=== PATIENT | female | born 1960 | race African-American/Black ===

== ENCOUNTER 2020-09-25 16:57 | Inpatient (IN) | payer MEDICAID ==
[~2020-09-25] VITALS: Ht 162.6 cm; Wt 55.3 kg
[~2020-09-25 16:57] MED LIST: AMLO10TA80 PO; HYDR100T26 MT; IBUP-2029 PO; INSLIS SUBCUT; LOSA50TA3 PO
[2020-09-25 17:47] LABS: BASOPHILS % 0.4 % (0.0-2.0); EOSINOPHILS % 0.2 % (0.0-5.0); LYMPHOCYTES % 9.4 % (20.0-50.0); MEAN CORPUSCULAR HEMOGLOBIN 28.7 pg (28.0-32.0); MEAN CORPUSCULAR VOLUME 90.6 fL (81.0-99.0); MEAN PLATELET VOLUME 8.5 fl (7.4-10.4); MONOCYTES % 5.5 % (2.0-8.0); NEUTROPHILS % 84.5 % (40.0-76.0); PLATELET 133 x1000/uL (130-400); RED BLOOD CELL COUNT 7.26 mill/uL (4.2-5.4); RED CELL DISTRIBUTION WIDTH 17.7 % (11.6-14.6)
[2020-09-25 17:51] LABS: HEMATOCRIT. 65.8 % (36.0-48.0); HEMOGLOBIN. 20.8 g/dL (12.0-16.0)
[2020-09-25 17:53] LABS: CHLORIDE 123 mEq/L (98-107)
[2020-09-25 18:02] LABS: CREATINE KINASE 563 IU/L (26-192)
[2020-09-25] MEDS ORDERED: DEXTROSE 50% WATER 50ML SYRINGE IV ONE (18:45)
[2020-09-25] MEDS ORDERED: CALCIUM GLUCONATE 1,000 MG in DEXT 5% WATER 100 ML IV ONE (18:45)
[2020-09-25] MEDS ORDERED: INSULIN REGULAR (HUMULIN R) 300UNITS/3ML VIAL IV ONE (18:45)
[2020-09-25] MEDS ORDERED: SODIUM BICARBONATE 8.4% 1 MEQ/ML 50ML SYR IV ONE (18:45)
[2020-09-25] MEDS ORDERED: PIPERACILLIN/TAZ 3.375G PREMIX 50 ML IV ONE (18:45)
[2020-09-25] MEDS ORDERED: VANCOMYCIN 1 G PREMIX 200 ML IV ONE (18:45)
[2020-09-25 19:27] LABS: INR 1.1; PROTHROMBIN TIME 11.6 sec (9.6-11.0)
[2020-09-25] MEDS ORDERED: LORAZEPAM 2MG/ML CPJ IV ONE (20:00)
[2020-09-25 21:45] LABS: CLARITY URINE CLOUDY (CLEAR); COLOR URINE YELLOW (YELLOW); KETONES URINE TRACE (NEGATIVE); LEUKOCYTE ESTERASE URINE 3+ (NEGATIVE); NITRITE URINE NEGATIVE (NEGATIVE); OCCULT BLOOD URINE 2+ (NEGATIVE); PROTEIN URINE 3+ (NEGATIVE); SPECIFIC GRAVITY URINE 1.019 (1.005-1.030)
[2020-09-25] MEDS ORDERED: NICARDIPINE 40MG/200ML PREMIX 200 ML IV PRN (22:00)
[2020-09-26] VITALS (91 sets, daily range): BP systolic 102–161; BP diastolic 41–96
[2020-09-26] MEDS ORDERED: NICARDIPINE 100 MG in SODIUM CHLORIDE 0.9% 60 ML IV PRN (02:00)
[2020-09-26 05:37] LABS: BASOPHILS % 0.3 % (0.0-2.0); EOSINOPHILS % 0.2 % (0.0-5.0); HEMOGLOBIN. 20.5 g/dL (12.0-16.0); LYMPHOCYTES % 9.4 % (20.0-50.0); MEAN CORPUSCULAR HEMOGLOBIN 29.6 pg (28.0-32.0); MEAN CORPUSCULAR VOLUME 90.8 fL (81.0-99.0); MEAN PLATELET VOLUME 7.8 fl (7.4-10.4); MONOCYTES % 4.3 % (2.0-8.0); NEUTROPHILS % 85.8 % (40.0-76.0); PLATELET 119 x1000/uL (130-400); RED BLOOD CELL COUNT 6.92 mill/uL (4.2-5.4); RED CELL DISTRIBUTION WIDTH 17.6 % (11.6-14.6)
[2020-09-26 06:44] LABS: HEMATOCRIT. 62.9 % (36.0-48.0)
[2020-09-26] MEDS ORDERED: SODIUM POLYSTYRENE SULFONATE 15 G/60 ML BOT PR NR (08:00)
[2020-09-26] MEDS ORDERED: SODIUM BICARBONATE 8.4% 1 MEQ/ML 50ML SYR IV ONE (08:15)
[2020-09-26] MEDS ORDERED: CALCIUM GLUCONATE 1GM PREMIX 50 ML IV SCH (08:15)
[2020-09-26] MEDS ORDERED: DEXTROSE 50% WATER 50ML SYRINGE IV PRN (08:15)
[2020-09-26] MEDS ORDERED: INSULIN REGULAR (HUMULIN R) 300UNITS/3ML VIAL IV ONE (08:15)
[2020-09-26] MEDS ORDERED: DEXTROSE 50% WATER 50ML SYRINGE IV NR (09:01)
[2020-09-26] MEDS: LEVETIRACETAM 500MG PREMIX 100 ML IV SCH ×2 (09:24→21:29)
[2020-09-26] MEDS: SODIUM CHLORIDE 0.45% 1,000 ML IV SCH ×2 (09:25→16:36)
[2020-09-26] MEDS ORDERED: CEFEPIME 1,000 MG in DEXTROSE 5% WATER 50 ML IV SCH (11:00)
[2020-09-26] MEDS: BLOOD SUGAR DIAGNOSTIC STRIP TEST SCH ×3 (12:30→21:30)
[2020-09-26 12:31] LABS: BG BASE EXCESS -4.4 mmol/L (-2.0-2.0); BG CARBOXYHEMOGLOBIN 0.3 % (0.5-1.5); BG DEOXYHEMOGLOBIN 1.8 % (0.0-5.0); BG HCO3 ACT 18.7 mmol/L (22.0-26.0); BG METHEMOGLOBIN 0.5 % (0.0-1.5); BG OXYGEN SATURATION 98.2 % (92.0-98.5); BG OXYHEMOGLOBIN 97.4 % (94.0-97.0); BG PCO2 30.8 mmHg (35.0-45.0); BG PO2 118.6 mmHg (75.0-100.0); BG SAMPLE SITE LEFT BRACHIAL; BG TOTAL HEMOGLOBIN 20.9 g/dL (12.0-18.0)
[2020-09-26] MEDS: INSULIN LISPRO 100 UNITS/ML SUBCUT SCH ×3 (13:37→21:30)
[2020-09-26] MEDS: CEFEPIME 1,000 MG in DEXTROSE 5% WATER 50 ML IV SCH (21:29)
[2020-09-26] MEDS: NYSTATIN POWDER 15GM TOP SCH (21:36)
[2020-09-27] VITALS (44 sets, daily range): BP systolic 108–164; BP diastolic 63–106
[2020-09-27] MEDS: SODIUM CHLORIDE 0.45% 1,000 ML IV SCH ×2 (03:09→09:04)
[2020-09-27] MEDS: MORPHINE SULFATE 2 MG/ML CPJ (NOT FOR IM USE) IV PRN (04:07)
[2020-09-27] MEDS: BLOOD SUGAR DIAGNOSTIC STRIP TEST SCH ×4 (06:37→21:04)
[2020-09-27 07:15] LABS: BASOPHILS % 0.2 % (0.0-2.0); EOSINOPHILS % 0.3 % (0.0-5.0); HEMATOCRIT. 55.1 % (36.0-48.0); HEMOGLOBIN. 17.8 g/dL (12.0-16.0); LYMPHOCYTES % 8.9 % (20.0-50.0); MEAN CORPUSCULAR HEMOGLOBIN 29.1 pg (28.0-32.0); MEAN CORPUSCULAR VOLUME 90.3 fL (81.0-99.0); MEAN PLATELET VOLUME 7.6 fl (7.4-10.4); NEUTROPHILS % 85.6 % (40.0-76.0); PLATELET 89 x1000/uL (130-400); RED CELL DISTRIBUTION WIDTH 17.6 % (11.6-14.6)
[2020-09-27 07:26] LABS: PHOSPHORUS 4.6 mg/dL (2.5-4.9)
[2020-09-27] MEDS: INSULIN LISPRO 100 UNITS/ML SUBCUT SCH ×4 (08:00→21:19)
[2020-09-27] MEDS: NYSTATIN POWDER 15GM TOP SCH (09:43)
[2020-09-27] MEDS: LEVETIRACETAM 500MG PREMIX 100 ML IV SCH ×2 (09:43→21:15)
[2020-09-27] MEDS: CEFEPIME 1,000 MG in DEXTROSE 5% WATER 50 ML IV SCH (09:43)
[2020-09-27] MEDS ORDERED: DEXT 5%/0.2% NACL 1,000 ML IV SCH (14:15)
[2020-09-27] MEDS: DEXT 5%/0.2% NACL 1,000 ML IV SCH (18:00)
[2020-09-27 23:32] LABS: T4 FREE 1.21 ng/dL (0.76-1.46)
[2020-09-27 23:50] LABS: CANNABINOID URINE SCREEN PRESUMTIVE POSITIVE (NEGATIVE); PHENCYCLIDINE URINE SCREEN NEGATIVE (NEGATIVE)
[2020-09-27 23:51] LABS: *AMPHETAMINES SCREEN URINE NEGATIVE (NEGATIVE); *BARBITURATES SCREEN URINE NEGATIVE (NEGATIVE); *BENZODIAZEPINES SCREEN URINE NEGATIVE (NEGATIVE); *COCAINE SCREEN URINE NEGATIVE (NEGATIVE); METHADONE URINE SCREEN NEGATIVE (NEGATIVE)
[2020-09-27 23:52] LABS: OPIATES URINE SCREEN PRESUMTIVE POSITIVE (NEGATIVE)
[2020-09-27 23:58] LABS: VITAMIN B12 SERUM > 2000.0 pg/mL (211-911)
[2020-09-28] VITALS (13 sets, daily range): BP systolic 118–142; BP diastolic 68–89
[2020-09-28] MEDS: DEXT 5%/0.2% NACL 1,000 ML IV SCH (02:00)
[2020-09-28] MEDS: NYSTATIN POWDER 15GM TOP SCH ×3 (02:53→20:49)
[2020-09-28] MEDS: BLOOD SUGAR DIAGNOSTIC STRIP TEST SCH ×4 (06:31→20:48)
[2020-09-28 06:49] LABS: BASOPHILS % 0.1 % (0.0-2.0); EOSINOPHILS % 0.6 % (0.0-5.0); HEMATOCRIT. 52.3 % (36.0-48.0); HEMOGLOBIN. 17.3 g/dL (12.0-16.0); LYMPHOCYTES % 10.4 % (20.0-50.0); MEAN CORPUSCULAR HEMOGLOBIN 29.9 pg (28.0-32.0); MEAN CORPUSCULAR VOLUME 90.7 fL (81.0-99.0); MONOCYTES % 2.9 % (2.0-8.0); PLATELET 82 x1000/uL (130-400); RED BLOOD CELL COUNT 5.76 mill/uL (4.2-5.4); RED CELL DISTRIBUTION WIDTH 17.3 % (11.6-14.6)
[2020-09-28 07:06] LABS: PHOSPHORUS 2.7 mg/dL (2.5-4.9)
[2020-09-28] MEDS: LEVETIRACETAM 500MG PREMIX 100 ML IV SCH ×2 (08:10→20:48)
[2020-09-28] MEDS: INSULIN LISPRO 100 UNITS/ML SUBCUT SCH ×4 (08:11→20:58)
[2020-09-28] MEDS ORDERED: CEFEPIME 1,000 MG in DEXTROSE 5% WATER 50 ML IV SCH (09:00)
[2020-09-28] MEDS ORDERED: CLOPIDOGREL 75MG TABLET PO SCH (09:00)
[2020-09-28 09:10] LABS: IMMUNOGLOBULIN A 374 mg/dL (87-352); IMMUNOGLOBULIN G 1120 mg/dL (586-1602); IMMUNOGLOBULIN M 82 mg/dL (26-217)
[2020-09-28] MEDS: MORPHINE SULFATE 2 MG/ML CPJ (NOT FOR IM USE) IV PRN ×2 (09:40→13:30)
[2020-09-28] MEDS ORDERED: MAGNESIUM 2 G PREMIX 50 ML IV NR (10:00)
[2020-09-28] MEDS: DEXT 5%/0.45% NACL 1000ML 1,000 ML IV SCH ×2 (11:20→20:48)
[2020-09-29] VITALS (11 sets, daily range): BP systolic 112–142; BP diastolic 38–80
[2020-09-29] MEDS ORDERED: CEFTRIAXONE 1,000 MG in DEXTROSE 5% WATER 50 ML IV SCH ×2 (01:00→21:00)
[2020-09-29] MEDS: DEXT 5%/0.45% NACL 1000ML 1,000 ML IV SCH ×2 (06:14→15:15)
[2020-09-29] MEDS: BLOOD SUGAR DIAGNOSTIC STRIP TEST SCH ×4 (06:20→20:30)
[2020-09-29 08:08] LABS: BASOPHILS % 0.3 % (0.0-2.0); EOSINOPHILS % 0.4 % (0.0-5.0); HEMATOCRIT. 51.3 % (36.0-48.0); HEMOGLOBIN. 16.8 g/dL (12.0-16.0); LYMPHOCYTES % 11.6 % (20.0-50.0); MEAN CORPUSCULAR HEMOGLOBIN 29.3 pg (28.0-32.0); MEAN CORPUSCULAR VOLUME 89.8 fL (81.0-99.0); MEAN PLATELET VOLUME 8.9 fl (7.4-10.4); MONOCYTES % 3.4 % (2.0-8.0); NEUTROPHILS % 84.3 % (40.0-76.0); PLATELET 100 x1000/uL (130-400); RED BLOOD CELL COUNT 5.71 mill/uL (4.2-5.4); RED CELL DISTRIBUTION WIDTH 17.4 % (11.6-14.6)
[2020-09-29] MEDS: LEVETIRACETAM 500MG PREMIX 100 ML IV SCH ×2 (08:54→20:22)
[2020-09-29] MEDS: NYSTATIN POWDER 15GM TOP SCH ×2 (08:55→20:23)
[2020-09-29] MEDS: INSULIN LISPRO 100 UNITS/ML SUBCUT SCH ×4 (08:55→20:35)
[2020-09-29 09:21] LABS: PHOSPHORUS 2.2 mg/dL (2.5-4.9)
[2020-09-29] MEDS: AMPICILLIN SOD/SULBACTAM NA 3 G in SODIUM CHLORIDE 0.9% 100 ML IV SCH ×2 (15:03→21:43)
[2020-09-29] MEDS ORDERED: SODIUM PHOS,M-BASIC-D-BASIC 15 MM in DEXT 5% WATER 245 ML IV SCH (17:00)
[2020-09-30] VITALS (13 sets, daily range): BP systolic 114–160; BP diastolic 64–88
[2020-09-30] MEDS: DEXT 5%/0.45% NACL 1000ML 1,000 ML IV SCH ×2 (01:15→09:56)
[2020-09-30] MEDS: AMPICILLIN SOD/SULBACTAM NA 3 G in SODIUM CHLORIDE 0.9% 100 ML IV SCH ×4 (03:00→21:40)
[2020-09-30] MEDS: BLOOD SUGAR DIAGNOSTIC STRIP TEST SCH ×4 (06:50→20:35)
[2020-09-30 07:31] LABS: BASOPHILS % 0.1 % (0.0-2.0); EOSINOPHILS % 0.4 % (0.0-5.0); HEMATOCRIT. 49.8 % (36.0-48.0); HEMOGLOBIN. 16.4 g/dL (12.0-16.0); LYMPHOCYTES % 12.3 % (20.0-50.0); MEAN CORPUSCULAR HEMOGLOBIN 29.8 pg (28.0-32.0); MEAN CORPUSCULAR VOLUME 90.4 fL (81.0-99.0); MEAN PLATELET VOLUME 8.9 fl (7.4-10.4); MONOCYTES % 4.1 % (2.0-8.0); NEUTROPHILS % 83.1 % (40.0-76.0); PLATELET 111 x1000/uL (130-400); RED BLOOD CELL COUNT 5.51 mill/uL (4.2-5.4); RED CELL DISTRIBUTION WIDTH 17.1 % (11.6-14.6)
[2020-09-30 07:38] LABS: PHOSPHORUS 2.6 mg/dL (2.5-4.9)
[2020-09-30] MEDS: INSULIN LISPRO 100 UNITS/ML SUBCUT SCH ×4 (08:02→20:39)
[2020-09-30] MEDS: NYSTATIN POWDER 15GM TOP SCH ×2 (09:55→20:24)
[2020-09-30] MEDS: LEVETIRACETAM 500MG PREMIX 100 ML IV SCH ×2 (09:55→20:22)
[2020-09-30] MEDS ORDERED: GADOTERATE MEGLUMINE 5 MMOL/10 ML VIAL IV ONE (12:51)
[2020-09-30] MEDS: MORPHINE SULFATE 2 MG/ML CPJ (NOT FOR IM USE) IV PRN ×2 (15:43→20:48)
[2020-09-30] MEDS: INSULIN GLARGINE UD 100 UNITS/ML SYR SUBCUT SCH (22:49)
[2020-10-01] VITALS (11 sets, daily range): BP systolic 123–161; BP diastolic 60–95
[2020-10-01] MEDS: AMPICILLIN SOD/SULBACTAM NA 3 G in SODIUM CHLORIDE 0.9% 100 ML IV SCH ×4 (03:26→21:39)
[2020-10-01] MEDS: DEXT 5%/0.45% NACL 1000ML 1,000 ML IV SCH (05:42)
[2020-10-01] MEDS: INSULIN LISPRO 100 UNITS/ML SUBCUT SCH ×4 (06:08→21:00)
[2020-10-01] MEDS: BLOOD SUGAR DIAGNOSTIC STRIP TEST SCH ×4 (06:08→21:00)
[2020-10-01 07:07] LABS: BASOPHILS % 0.2 % (0.0-2.0); EOSINOPHILS % 1.3 % (0.0-5.0); HEMATOCRIT. 47.8 % (36.0-48.0); HEMOGLOBIN. 15.6 g/dL (12.0-16.0); LYMPHOCYTES % 12.8 % (20.0-50.0); MEAN CORPUSCULAR HEMOGLOBIN 29.2 pg (28.0-32.0); MEAN CORPUSCULAR VOLUME 89.6 fL (81.0-99.0); MEAN PLATELET VOLUME 8.4 fl (7.4-10.4); MONOCYTES % 4.6 % (2.0-8.0); NEUTROPHILS % 81.1 % (40.0-76.0); PLATELET 140 x1000/uL (130-400); RED BLOOD CELL COUNT 5.33 mill/uL (4.2-5.4); RED CELL DISTRIBUTION WIDTH 17.4 % (11.6-14.6)
[2020-10-01 07:20] LABS: CHLORIDE 115 mEq/L (98-107)
[2020-10-01 07:29] LABS: PHOSPHORUS 1.7 mg/dL (2.5-4.9)
[2020-10-01] MEDS: NYSTATIN POWDER 15GM TOP SCH ×2 (09:05→21:24)
[2020-10-01] MEDS: LEVETIRACETAM 500MG PREMIX 100 ML IV SCH ×2 (09:05→21:24)
[2020-10-01] MEDS ORDERED: MORPHINE SULFATE 2 MG/ML CPJ (NOT FOR IM USE) IV PRN (09:30)
[2020-10-01] MEDS: INSULIN GLARGINE UD 100 UNITS/ML SYR SUBCUT SCH ×2 (09:45→22:18)
[2020-10-01] MEDS ORDERED: MORPHINE SULFATE 2 MG/ML CPJ (NOT FOR IM USE) IV ONE (12:15)
[2020-10-01] MEDS ORDERED: POTASSIUM PHOS,M-BASIC-D-BASIC 20 MMOL in DEXT 5% WATER 243.3333 ML IV SCH (14:00)
[2020-10-01] MEDS: MORPHINE SULFATE 4 MG/ML CPJ (NOT FOR IM USE) IV PRN ×2 (17:35→22:20)
[2020-10-02] VITALS (8 sets, daily range): BP systolic 125–146; BP diastolic 61–83
[2020-10-02] MEDS: AMPICILLIN SOD/SULBACTAM NA 3 G in SODIUM CHLORIDE 0.9% 100 ML IV SCH ×4 (03:36→22:53)
[2020-10-02] MEDS: DEXT 5%/0.45% NACL 1000ML 1,000 ML IV SCH (03:37)
[2020-10-02] MEDS: BLOOD SUGAR DIAGNOSTIC STRIP TEST SCH ×4 (06:24→21:00)
[2020-10-02 07:11] LABS: BASOPHILS % 0.4 % (0.0-2.0); CHLORIDE 117 mEq/L (98-107); EOSINOPHILS % 1.5 % (0.0-5.0); HEMATOCRIT. 46.4 % (36.0-48.0); HEMOGLOBIN. 15.3 g/dL (12.0-16.0); LYMPHOCYTES % 17.3 % (20.0-50.0); MEAN CORPUSCULAR HEMOGLOBIN 29.4 pg (28.0-32.0); MEAN CORPUSCULAR VOLUME 89.1 fL (81.0-99.0); MEAN PLATELET VOLUME 8.4 fl (7.4-10.4); MONOCYTES % 6.4 % (2.0-8.0); NEUTROPHILS % 74.4 % (40.0-76.0); PLATELET 179 x1000/uL (130-400); RED BLOOD CELL COUNT 5.21 mill/uL (4.2-5.4)
[2020-10-02 07:17] LABS: PHOSPHORUS 2.5 mg/dL (2.5-4.9)
[2020-10-02] MEDS: INSULIN LISPRO 100 UNITS/ML SUBCUT SCH ×4 (07:20→21:00)
[2020-10-02] MEDS: MORPHINE SULFATE 4 MG/ML CPJ (NOT FOR IM USE) IV PRN (09:06)
[2020-10-02] MEDS: LEVETIRACETAM 500MG PREMIX 100 ML IV SCH ×2 (09:06→22:03)
[2020-10-02] MEDS: NYSTATIN POWDER 15GM TOP SCH ×2 (09:12→21:00)
[2020-10-02] MEDS ORDERED: MAGNESIUM 2 G PREMIX 50 ML IV SCH (10:00)
[2020-10-02] MEDS: INSULIN GLARGINE UD 100 UNITS/ML SYR SUBCUT SCH (11:17)
[2020-10-02] MEDS: HYDROMORPHONE HCL/PF 2MG/ML CPJ IV PRN ×2 (12:23→19:05)
[2020-10-02] MEDS: MORPHINE SULFATE 15MG TABLET SR PO SCH (22:04)
[2020-10-02] MEDS: ZOLPIDEM TARTRATE 5MG TABLET PO PRN (22:53)
[2020-10-03] VITALS (7 sets, daily range): BP systolic 135–160; BP diastolic 53–89
[2020-10-03] MEDS: AMPICILLIN SOD/SULBACTAM NA 3 G in SODIUM CHLORIDE 0.9% 100 ML IV SCH ×4 (02:54→23:24)
[2020-10-03] MEDS: AMLODIPINE 10MG TABLET PO SCH (05:18)
[2020-10-03 06:34] LABS: BASOPHILS % 0.8 % (0.0-2.0); EOSINOPHILS % 1.4 % (0.0-5.0); HEMATOCRIT. 45.7 % (36.0-48.0); HEMOGLOBIN. 15.1 g/dL (12.0-16.0); MEAN CORPUSCULAR HEMOGLOBIN 29.5 pg (28.0-32.0); MEAN CORPUSCULAR VOLUME 89.3 fL (81.0-99.0); MEAN PLATELET VOLUME 7.4 fl (7.4-10.4); NEUTROPHILS % 73.8 % (40.0-76.0); PLATELET 170 x1000/uL (130-400); RED BLOOD CELL COUNT 5.12 mill/uL (4.2-5.4); RED CELL DISTRIBUTION WIDTH 16.9 % (11.6-14.6)
[2020-10-03] MEDS: BLOOD SUGAR DIAGNOSTIC STRIP TEST SCH ×4 (07:20→21:00)
[2020-10-03] MEDS: INSULIN LISPRO 100 UNITS/ML SUBCUT SCH ×4 (07:50→22:35)
[2020-10-03 08:43] LABS: CHLORIDE 114 mEq/L (98-107)
[2020-10-03 08:49] LABS: PHOSPHORUS 2.2 mg/dL (2.5-4.9)
[2020-10-03] MEDS: MORPHINE SULFATE 15MG TABLET SR PO SCH ×2 (09:06→22:16)
[2020-10-03] MEDS: LEVETIRACETAM 500MG PREMIX 100 ML IV SCH ×2 (09:06→22:15)
[2020-10-03] MEDS: NYSTATIN POWDER 15GM TOP SCH ×2 (09:07→22:17)
[2020-10-03] MEDS: HYDROMORPHONE HCL/PF 2MG/ML CPJ IV PRN (12:20)
[2020-10-03] MEDS: ASPIRIN 81MG TABLET PO SCH (18:51)
[2020-10-03] MEDS: POTASSIUM-SODIUM PHOSPHATE POWDER PACKET PO SCH (18:51)
[2020-10-03] MEDS: ZOLPIDEM TARTRATE 5MG TABLET PO PRN (22:17)
[2020-10-04] VITALS: BP 130/70
[2020-10-04] MEDS: AMPICILLIN SOD/SULBACTAM NA 3 G in SODIUM CHLORIDE 0.9% 100 ML IV SCH ×2 (02:50→08:50)
[2020-10-04 04:00] VITALS: BP 146/82
[2020-10-04] MEDS: HYDROMORPHONE HCL/PF 2MG/ML CPJ IV PRN (04:06)
[2020-10-04 07:05] LABS: BASOPHILS % 0.7 % (0.0-2.0); EOSINOPHILS % 1.7 % (0.0-5.0); HEMATOCRIT. 45.9 % (36.0-48.0); HEMOGLOBIN. 14.9 g/dL (12.0-16.0); LYMPHOCYTES % 26.9 % (20.0-50.0); MEAN CORPUSCULAR HEMOGLOBIN 29.4 pg (28.0-32.0); MEAN CORPUSCULAR VOLUME 90.2 fL (81.0-99.0); MEAN PLATELET VOLUME 8.4 fl (7.4-10.4); MONOCYTES % 8.7 % (2.0-8.0); PLATELET 169 x1000/uL (130-400); RED BLOOD CELL COUNT 5.09 mill/uL (4.2-5.4); RED CELL DISTRIBUTION WIDTH 17.1 % (11.6-14.6)
[2020-10-04 07:19] LABS: CHLORIDE 114 mEq/L (98-107)
[2020-10-04] MEDS: BLOOD SUGAR DIAGNOSTIC STRIP TEST SCH ×2 (07:20→12:20)
[2020-10-04 07:36] LABS: PHOSPHORUS 2.4 mg/dL (2.5-4.9)
[2020-10-04] MEDS: INSULIN LISPRO 100 UNITS/ML SUBCUT SCH ×2 (07:50→12:20)
[2020-10-04 08:00] VITALS: BP 136/70
[2020-10-04] MEDS: NYSTATIN POWDER 15GM TOP SCH (08:51)
[2020-10-04] MEDS: ASPIRIN 81MG TABLET PO SCH (08:51)
[2020-10-04] MEDS: AMLODIPINE 10MG TABLET PO SCH (08:52)
[2020-10-04] MEDS: POTASSIUM-SODIUM PHOSPHATE POWDER PACKET PO SCH (08:52)
[2020-10-04 08:53] VITALS: BP 130/70
[2020-10-04] MEDS: MORPHINE SULFATE 15MG TABLET SR PO SCH (08:53)
[2020-10-04] MEDS: LEVETIRACETAM 500MG PREMIX 100 ML IV SCH (09:39)
[2020-10-04] MEDS ORDERED: MAGNESIUM 2 G PREMIX 50 ML IV NR (11:00)
[2020-10-06 04:11] LABS: 25-HYDROXY VITAMIN D3 13 ng/mL (.)
== END 2020-10-04 15:44 | DRG 720 ==
LOC: ER 16:57 → MICUSO 20:24 → EDBEDREQSVC 20:38 → EDBEDREQTM 20:38 → EDBEDREQ 20:38 → 5EST 22:52 → 3WST 09-27 11:55 → 6EST 10-02 18:47
PROVIDERS: ADMIT Internal Medicine; ATTEND Internal Medicine
DX: A41.50 Gram-negative sepsis, unspecified (principal); I63.9 Cerebral infarction, unspecified; N39.0 Urinary tract infection, site not specified; E43 Unspecified severe protein-calorie malnutrition; D75.1 Secondary polycythemia; E87.5 Hyperkalemia; E87.8 Other disorders of electrolyte and fluid balance, not elsewhere classified; E87.0 Hyperosmolality and hypernatremia; E87.2 Acidosis; K50.90 Crohn's disease, unspecified, without complications; I10 Essential (primary) hypertension; G81.94 Hemiplegia, unspecified affecting left nondominant side; B96.1 Klebsiella pneumoniae [K. pneumoniae] as the cause of diseases classified elsewhere; D69.6 Thrombocytopenia, unspecified; G92 Toxic encephalopathy; M62.82 Rhabdomyolysis; R13.10 Dysphagia, unspecified; R47.01 Aphasia; Z86.16 Personal history of COVID-19; S90.822A Blister (nonthermal), left foot, initial encounter; N17.0 Acute kidney failure with tubular necrosis; R65.20 Severe sepsis without septic shock; I62.00 Nontraumatic subdural hemorrhage, unspecified; Z51.5 Encounter for palliative care; E83.42 Hypomagnesemia; E11.51 Type 2 diabetes mellitus with diabetic peripheral angiopathy without gangrene; C64.9 Malignant neoplasm of unspecified kidney, except renal pelvis; E83.39 Other disorders of phosphorus metabolism; E11.649 Type 2 diabetes mellitus with hypoglycemia without coma; E11.9 Type 2 diabetes mellitus without complications; X58.XXXA Exposure to other specified factors, initial encounter; Z78.1 Physical restraint status; Z86.73 Personal history of transient ischemic attack (TIA), and cerebral infarction without residual deficits; Y93.89 Activity, other specified; Y92.89 Other specified places as the place of occurrence of the external cause; Y99.8 Other external cause status; Z79.899 Other long term (current) drug therapy; Z79.82 Long term (current) use of aspirin; Z79.4 Long term (current) use of insulin; Z82.49 Family history of ischemic heart disease and other diseases of the circulatory system; Z68.20 Body mass index [BMI] 20.0-20.9, adult; Z85.528 Personal history of other malignant neoplasm of kidney
CPT/HCPCS: 36415; 36600; 70551; 70552; 71045; 76770; 80048; 80053; 80061; 80305; 80320; 81003; 82140; 82306; 82375; 82550; 82570; 82607; 82746; 82784; 82805; 82962; 83036; 83605; 83735; 84100; 84156; 84439; 84443; 84481; 84484; 85025; 86160; 86334; 87077; 87186; 87426; 92610; 93005; 93306; 93880; 93923; 96374; 97110; 97162; 97166; 97530; 97535; 99291; A9577; J0295; J0610; J0692; J0696; J1170; J1815; J1953; J2060; J2270; J2543; J3370; J3475; J3490; J7040; J7050; J7060; J7070; A4315; G0480